=== PATIENT | female | born 1955 | race Caucasian/White ===

== ENCOUNTER 2020-12-13 07:30 | Outpatient (REF) | payer BC, SELFPAY ==
[2020-12-13 08:14] LABS: MANUAL DIFF FLAG NO
[2020-12-13 08:16] LABS: Basophils Absolute Auto 0.1 X10*3/uL (0.0-0.2); Basophils Percent Auto 0.9 % (0-2); Eosinophils Absolute Auto 0.2 X10*3/uL (0.0-0.4); Eosinophils Percent Auto 3.6 % (0-4); Hematocrit 43.2 % (37-47); Hemoglobin 14.1 g/dl (12.0-16.0); Imm Gran Abs Auto 0.01 X10*3/uL (0.00-0.03); Imm Gran Pct Auto 0.2 % (0.0-0.4); Lymphocytes Absolute Auto 1.4 X10*3/uL (1.2-4.9); Lymphocytes Percent Auto 26.4 % (20-40); Mean Corpuscular HGB Conc 32.6 g/dl (31.0-35.0); Mean Corpuscular Volume 88.7 fL (80-98); Mean Platelet Volume 10.7 fL (9.4-12.3); Monocytes Absolute Auto 0.5 X10*3/uL (0.1-1.2); Neutrophils Absolute Auto 3.2 X10*3/uL (2.0-8.3); Neutrophils Percent Auto 59.9 % (45-73); Platelet Count 213 X10*3/uL (160-400); Red Blood Count 4.87 X10*6/uL (4.20-5.50); Red Cell Distribution Width 13.1 % (11.0-16.0); White Blood Count 5.4 X10*3/uL (4.8-10.8)
[2020-12-13 08:42] LABS: Alanine Aminotransferase 17 U/L (0-31); Albumin Level 4.1 g/dL (3.5-5.0); Alkaline Phosphatase 116 U/L (39-117); Anion Gap 16 (12-20); Aspartate Amino Transferase 32 U/L (5-31); Bilirubin Total 0.4 mg/dL (0.0-1.0); Blood Urea Nitrogen 13 mg/dL (9-16); Calcium 9.3 mg/dL (8.4-10.2); Carbon Dioxide 22 mmol/L (22-29); Chloride 107 mmol/L (96-108); Cholesterol 194 mg/dL; Estimated Glomerular Filt Rate > 60; Glucose Random 90 mg/dL (60-115); HDL Cholesterol 81 mg/dL; LDL Cholesterol Calculated 100 mg/dl; Potassium 5.4 mmol/L (3.3-5.1); Sodium 140 mmol/L (135-145); Total Protein 7.5 g/dL (6.5-8.0); Triglycerides 67 mg/dL
== END 2020-12-13 07:31 | disposition home or self-care (01) ==
LOC: HO.LAB 07:30
PROVIDERS: PCP Internal Medicine; Visit Provider Internal Medicine
DX: Z00.00 Encounter for general adult medical examination without abnormal findings (principal)
CPT/HCPCS: 36415; 80053; 80061; 85025

== ENCOUNTER 2021-01-21 13:37 | Outpatient (REF) | payer MEDICARE, SELFPAY ==
--- NOTE | ~2021-01-21 | MM_ITS ---
EXAMINATION: MM SCREENING DIGITAL BREAST TOMOSYNTHESIS, BILATERAL CLINICAL INFORMATION: Screening. Asymptomatic. The lifetime risk of breast cancer based on the Tyrer-Cuzick Model is 5.9%. COMPARISON: Mammography: February 20, 2019 and studies dating back to April 22, 2011 TECHNIQUE: Digital breast tomosynthesis is performed in both the craniocaudal and mediolateral oblique views along with computer-aided detection (CAD). Synthesized 2D images are generated from the tomosynthesis. FINDINGS: There are scattered areas of fibroglandular density (ACR BI-RADS breast composition Category b). There are no new significant masses, abnormal calcifications, or other abnormalities. MM/MM tomosynthesis screening BI IMPRESSION: There are no significant changes from prior study. ASSESSMENT: BI-RADS 1: Negative RECOMMENDATION: Routine annual mammography screening. This patient's information was entered into a reminder system with a target due date for their next mammogram.
--- NOTE | ~2021-01-21 | MM_ITS ---
EXAMINATION: BONE DENSITOMETRY CLINICAL INDICATION: Menopause. COMPARISON: None (current study represents initial baseline exam). TECHNIQUE: Using a [employer] DXA System (software version: 13.1) manufactured by [employer], dual-energy x-ray absorptiometry was performed of the lumbar spine and left hip. The images are of good technical quality. Summary results are attached. FINDINGS: AP SPINE L1-L4: BMD 0.993 g/cm2, Z-score -0.1, T-score -1.6, osteopenia. LEFT FEMUR, NECK: BMD 0.758 g/cm2, Z-score -0.6, T-score -2.0, osteopenia. LEFT FEMUR, TOTAL: BMD 0.814 g/cm2, Z-score -0.4, T-score -1.5, osteopenia. IDENTIFIED RISK FACTORS: Menopause. HISTORY OF FRACTURE: None listed. MEDICATIONS: Calcium. MM/XR DEXA axial skeleton IMPRESSION: 1. DIAGNOSIS: Osteopenia based on the lowest T-score value of -2.0 in the femoral neck applying World Health Organization criteria. 2. 10-YEAR FRACTURE RISK PREDICTION, FRAX: Major osteoporotic fracture (clinical spine, forearm, hip or shoulder) 10.7%. Hip fracture 1.6%. 3. Treatment Recommendations: NOF guidelines recommend consideration for treatment in postmenopausal women and men age 50 and older presenting with the following: -A hip or vertebral (clinical or morphometric) fracture. -T-score less than or equal to -2.5 at the femoral neck or spine after appropriate evaluation to exclude secondary causes. -Low bone mass at the hip or spine and a 10-year fracture probability by FRAX of greater than or equal to 3% for hip fracture or greater than or equal to 20% for major osteoporotic fracture based on the [place] adapted WHO algorithm. 4. Other Recommendations: All treatment decisions require clinical judgment and consideration of individual patient factors, including patient preferences, comorbidities, previous drug use, risk factors not captured in the FRAX model (e.g. frailty, falls, vitamin D deficiency, increased bone turnover, interval significant decline in bone density) and possible under or overestimation of fracture risk by FRAX. Additional medical evaluation for secondary cause of low bone mineral density may be appropriate. FUTURE SCAN RECOMMENDATION: People with diagnosed cases of osteoporosis or at high risk for fracture should have regular bone mineral density tests. For patients eligible for Medicare, routine testing is allowed once every 2 years. The testing frequency can be increased to one year for patients who have rapidly progressing disease, those who are receiving or discontinuing medical therapy to restore bone mass, or have additional risk factors.
== END 2021-01-21 13:38 | disposition home or self-care (01) ==
LOC: HO.MAMMO 13:37
PROVIDERS: Visit Provider Internal Medicine
DX: Z12.31 Encounter for screening mammogram for malignant neoplasm of breast (principal); Z13.820 Encounter for screening for osteoporosis; M85.80 Other specified disorders of bone density and structure, unspecified site; Z78.0 Asymptomatic menopausal state; Z79.899 Other long term (current) drug therapy
CPT/HCPCS: 77063; 77067; 77080

== ENCOUNTER 2022-05-25 15:26 | Outpatient (REF) | payer MEDICARE, SELFPAY ==
--- NOTE | ~2022-05-25 | XR_ITS ---
EXAMINATION: XR CHEST CLINICAL INFORMATION: Shortness of breath. Rule out lesion. COMPARISON: None TECHNIQUE: 2 views of the chest were obtained. FINDINGS: No significant abnormality is noted involving the heart, lungs, mediastinum, bony thorax or soft tissues. There are degenerative changes of the spine. XR/XR chest 2V IMPRESSION: Unremarkable examination.
[2022-05-25 15:44] LABS: MANUAL DIFF FLAG NO
[2022-05-25 16:01] LABS: Basophils Percent Auto 0.4 % (0-2); Eosinophils Absolute Auto 0.2 X10*3/uL (0.0-0.4); Eosinophils Percent Auto 3.3 % (0-4); Hematocrit 41.4 % (37.0-47.0); Hemoglobin 13.5 g/dl (12.0-16.0); Imm Gran Abs Auto 0.02 X10*3/uL (0.00-0.03); Imm Gran Pct Auto 0.3 % (0.0-0.4); Lymphocytes Absolute Auto 2.2 X10*3/uL (1.2-4.9); Lymphocytes Percent Auto 31.7 % (20-40); Mean Corpuscular HGB Conc 32.6 g/dl (31.0-35.0); Mean Corpuscular Hemoglobin 28.9 pg (27.0-33.0); Mean Corpuscular Volume 88.7 fL (80.0-98.0); Mean Platelet Volume 9.8 fL (9.4-12.3); Monocytes Absolute Auto 0.6 X10*3/uL (0.1-1.2); Monocytes Percent Auto 8.9 % (2-11); Neutrophils Absolute Auto 3.8 x10*3/uL (2.0-8.3); Neutrophils Percent Auto 55.4 % (45-73); Platelet Count 303 X10*3/uL (160-400); Red Blood Count 4.67 X10*6/uL (4.20-5.50); Red Cell Distribution Width 12.9 % (11.0-16.0); White Blood Count 6.9 X10*3/uL (4.8-10.8)
[2022-05-25 16:13] LABS: D Dimer High Sensitivity < 150 NG/ML
[2022-05-25 16:50] LABS: Alanine Aminotransferase 19 U/L (0-31); Albumin Level 4.5 g/dL (3.5-5.0); Alkaline Phosphatase 123 U/L (39-117); Anion Gap 16 (12-20); Aspartate Amino Transferase 22 U/L (5-31); Bilirubin Total 0.3 mg/dL (0.0-1.0); Blood Urea Nitrogen 16 mg/dL (9-16); Calcium 9.7 mg/dL (8.4-10.2); Carbon Dioxide 24 mmol/L (22-29); Chloride 105 mmol/L (96-108); Estimated Glomerular Filt Rate > 60; Glucose Random 85 mg/dL (60-115); Potassium 4.4 mmol/L (3.3-5.1); Sodium 141 mmol/L (135-145); Total Protein 7.5 g/dL (6.5-8.0)
== END 2022-05-25 15:27 | disposition home or self-care (01) ==
LOC: HO.LAB 15:26
PROVIDERS: PCP Internal Medicine; Visit Provider Internal Medicine
DX: M54.9 Dorsalgia, unspecified (principal); R06.02 Shortness of breath
CPT/HCPCS: 36415; 71046; 80053; 82550; 85025; 85379; 86140

== ENCOUNTER 2022-12-11 13:41 | Outpatient (REF) | payer MEDICARE, SELFPAY ==
--- NOTE | ~2022-12-11 | XR_ITS ---
EXAMINATION: XR LUMBOSACRAL SPINE CLINICAL INFORMATION: Mid back pain. COMPARISON: None available. TECHNIQUE: Three views of the lumbosacral spine. FINDINGS: Examination demonstrates severe disc space narrowing at L4-L5 and moderate disc space narrowing at L5-S1. Mild facet degenerative changes are present at L4-S1. Asymmetric sacralization of L5. No spondylolysis or spondylolisthesis is appreciated. Vertebral body heights appear maintained. There may be approximately 1 mm posterior subluxation of L4 on L5. Mild lumbar levocurvature. No lytic or sclerotic bony lesion is identified. The paraspinal soft tissues appear unremarkable. Aortoiliac calcification. XR/XR lumbar spine 2-3V IMPRESSION: Degenerative change.
--- NOTE | ~2022-12-11 | XR_ITS ---
EXAMINATION: XR THORACIC SPINE CLINICAL INFORMATION: Mid back pain. COMPARISON: None available. TECHNIQUE: Frontal, lateral, and swimmer's views. FINDINGS: Examination demonstrates mild disc degenerative change involving the mid thoracic spine. Vertebral body heights and alignment appear maintained. No lytic or sclerotic bony lesion is seen. The paraspinal soft tissues appear unremarkable. XR/XR thoracic spine 2V IMPRESSION: Mild degenerative changes.
== END 2022-12-11 13:42 | disposition home or self-care (01) ==
LOC: HO.XRAY 13:41
PROVIDERS: PCP Internal Medicine; Visit Provider Internal Medicine
DX: M54.9 Dorsalgia, unspecified (principal)
CPT/HCPCS: 72070; 72100

== ENCOUNTER 2025-02-02 08:56 | Outpatient (AMB) | payer MEDICARE, SELFPAY ==
[2025-02-02 08:58] VITALS: BP 122/76; PULSE 90; TEMP 36.5; O2SAT 98; BMI 29.7
--- NOTE | 2025-02-02 08:58 | MHC.PC.OV ---
Vital Signs 02/02/25 08:58 Height 5 ft 1 in Weight 157 lb BMI 29.7 BP 122/76 Blood Pressure Location Rt brachial Position Sitting Pulse 90 Pulse Source Pulse Oximeter Temp 97.7 F Temp Source Axillary Pulse Oximetry (%) 98 Oxygen Delivery Method Room Air Intake Visit Reasons: Routine - see comments Sandwich Artist Required: No Accompanied by: Self / Same As Patient Allergies No Known Allergies Allergy (Verified 02/02/25 09:01) Tobacco use date assessed: 02/02/25 Fall risk assessment: No Falls in past year Last assessed Fall Risk: 02/02/25 Dental Screening Dental Screen Date: 02/02/25 Did you have a dental visit in the last 12 months?: Yes Did you have a dental problem in the last 6 months where you did not have access to dental care?: No HPI HPI Comments History of Present Illness Details The patient is a 69 year old female with a past medical history of hypertension presenting for follow up CV: htn on lisinopril 122/76. Denies chest pain, shortness of breath. She has had two episodes of elevated heart rate in the past six months.. Notes her heart rate increased to 150s, 160s. Has apple watch. Couldnt read rhythm. She is frustrated by weight gain. Has been really careful with diet and exercise Reports episodic globus, dysphagia. Intermittent cough, throat clearing. 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 Colonoscopy 04/2017 ROS CONSTITUTIONAL: Denies weight loss, fever and chills. HEENT: Denies changes in vision and hearing. RESPIRATORY: Denies SOB and cough. CV: Denies palpitations and CP GI: Denies abdominal pain, nausea, vomiting and diarrhea. : Denies dysuria and urinary frequency. MSK: Denies new myalgia and joint pain. SKIN: Denies rash and pruritus. NEUROLOGICAL: Denies headache PSYCHIATRIC: Denies recent changes in mood. PHYSICAL EXAM: GENERAL: Alert and oriented x 3. NAD EYES: EOMI. Anicteric. HENT: Moist mucous membranes. No scleral icterus. No cervical lymphadenopathy. LUNGS: Clear to auscultation bilaterally. CARDIOVASCULAR: Regular rate and rhythm. No murmur. No JVD. ABDOMEN: Soft, non-tender +bs EXTREMITIES: No edema. Non-tender. SKIN: No rashes or lesions. Warm. NEUROLOGIC: No focal neurological deficits. CN II-XII grossly intact PSYCHIATRIC: Cooperative. Appropriate mood and affect [facility] Surgical History History of colonoscopy (~05/17/17) Family History (Updated 02/02/25 @ 09:02 by Desirae Plunkett MA) Mother No problems noted. Father No problems noted. Social History Housing: House Patient Tobacco Use Status: Former Tobacco user e-Cigarette/Vaping Use: Former Use service: No Current occupational status: employed and retired Cognitive needs: No Hearing needs: No Vision needs: Yes (rx glasses) Questionnaire PHQ-9 Over the last 2 weeks, how often have you been bothered by any of the following problems? 1. Little interest or pleasure in doing things: not at all 2. Feeling down, depressed, or hopeless: not at all 3. Trouble falling or staying asleep, or sleeping too much: not at all 4. Feeling tired or having little energy: not at all 5. Poor appetite or overeating: not at all 6. Feeling bad about yourself - or that you are a failure or have let yourself or your family down: not at all 7. Trouble concentrating on things, such as reading the newspaper or watching television: not at all 8. Moving or speaking so slowly that other people could have noticed. Or the opposite - being so fidgety or restless that you have been moving around a lot more than usual: not at all 9. Thoughts that you would be better off or of hurting yourself in some way: not at all Total score: 0 Depression Screening Interpretation: Negative Depression Screening Done: Yes 06243 - PHQ-9 Billing: Yes Source: Developed by Drs. Rickie Oliver, Linda Sequeira, Brenton Valencia and colleagues, with an educational redd from [employer]. Thrive Questionnaire Date Thrive assessed: 02/02/25 I am a: Patient Within the past 12 months, did the food you bought not last and you didn't have the money to get more?: Never true Within the past 12 months, did you worry whether your food would run out before you got money to buy more?: Never true Do you have trouble paying for medicines?: No Do you have trouble getting transportation to medical appointments?: No Do you have trouble paying your heating and electricity bill?: No Do you have trouble taking care of your child, family member or friend?: No Do you have trouble with day-to-day activities such as bathing, preparing meals, shopping, managing finances, etc.?: No Are you currently unemployed and looking for a job?: No Are you interested in more education?: No THRIVE Score: 0 AUDIT C Alcohol Use Questionnaire (AUDIT-C) 1. How often do you have a drink containing alcohol?: Monthly or less 2. How many drinks containing alcohol do you have on a typical day when you are drinking?: 1 or 2 3. How often do you have six or more drinks on one occasion?: Less than monthly Total Score: 2 AYLEEN-7 AMB Questionnaire ALYEEN-7 Date AYLEEN - 7 assessed: 02/02/25 Feeling nervous, anxious, or on edge: 0 = Not at all Not being able to stop or control worryin = Not at all Worrying too much about different things: 0 = Not at all Trouble relaxin = Not at all Being so restless that it is hard to sit still: 0 = Not at all Becoming easily annoyed or irritable: 0 = Not at all Feeling afraid as if something awful might happen: 0 = Not at all Total AYLEEN-7 score (0-4 normal; 5-9 mild; 10-14 moderate; 15-21 severe): 0 Source: Developed by Drs. Rickie Oliver, Linda Sequeira, Brenton Valencia and colleagues, with an educational redd from [employer]. Physical exam (Primary Care) Vital Signs: Last Vital Signs Temp 97.7 F 02/02/25 08:58 Pulse 90 02/02/25 08:58 BP 122/76 02/02/25 08:58 Pulse Ox 98 02/02/25 08:58 Oxygen Delivery Method Room Air 02/02/25 08:58 BMI result Body Mass Index 29.7 Tobacco/Smoking Status: Tobacco use Status Tobacco use date assessed 02/02/25 02/02/25 09:04 Patient Tobacco Use Status Former Tobacco user 02/02/25 09:04 e-Cigarette/Vaping Use Former Use 02/02/25 09:04 PHQ-9: PHQ-9 Score PHQ-9: Total score 0 02/02/25 13:06 Depression Screening Interpretation: Negative Thrive Assessment: Date of Thrive Assessment Date Thrive assessed 02/02/25 02/02/25 09:04 Coding Level of Care Code New Pt Level 4 (44740) Complex EM visit Add On G2211 Diagnoses Primary hypertension I10 Hypertension type: primary hypertension Heart murmur R01.1 Dysphagia, unspecified type R13.10 Dysphagia type: unspecified Globus sensation R09.A2 Additional Codes PHQ-9 - 64193 - PHQ-9 Billing: Yes ([id number]) Assessment & Plan Assessment & Plan (1) Hypertension: Code(s): I10 - Essential (primary) hypertension Category: Medical Qualifiers: Hypertension type: primary hypertension Qualified Code(s): I10 - Essential (primary) hypertension (2) Heart murmur: Code(s): R01.1 - Cardiac murmur, unspecified Category: Medical (3) Dysphagia: Code(s): R13.10 - Dysphagia, unspecified Category: Medical Qualifiers: Dysphagia type: unspecified Qualified Code(s): R13.10 - Dysphagia, unspecified (4) Globus sensation: Code(s): R09.A2 - Foreign body sensation, throat Category: Medical Plan 69 year old to establish care Past medical, surgical social reviewed HTN is well controled Dysphagia-swallow test, GI. US thyroid ordred Tachycardia, palpitations -echo, holter ordered Orders: Orders Comprehensive Met. Panel 02/02/25 I10 - Essential (primary) hypertension, R35.89 - Other polyuria, Z13.0 - Encounter for screening for diseases of the blood and blood-forming organs and certain disorders involving the immune mechanism, Z13.220 - Encounter for screening for lipoid disorders, Z13.228 - Encounter for screening for other metabolic disorders LDL Cholesterol Direct 02/02/25 I10 - Essential (primary) hypertension, R35.89 - Other polyuria, Z13.0 - Encounter for screening for diseases of the blood and blood-forming organs and certain disorders involving the immune mechanism, Z13.220 - Encounter for screening for lipoid disorders, Z13.228 - Encounter for screening for other metabolic disorders Hemoglobin A1c 02/02/25 I10 - Essential (primary) hypertension, R35.89 - Other polyuria, Z13.0 - Encounter for screening for diseases of the blood and blood-forming organs and certain disorders involving the immune mechanism, Z13.220 - Encounter for screening for lipoid disorders, Z13.228 - Encounter for screening for other metabolic disorders CA echo transthoracic complete 02/02/25 R00.0 - Tachycardia, unspecified, R01.1 - Cardiac murmur, unspecified ECG holter monitor 48 hour 02/02/25 R00.0 - Tachycardia, unspecified AMB EKG-In Office 02/02/25 R00.2 - Palpitations FL barium swallow 02/02/25 R09.A2 - Foreign body sensation, throat, R13.10 - Dysphagia, unspecified Complete Blood Count Auto Diff 02/02/25 I10 - Essential (primary) hypertension, R35.89 - Other polyuria, Z13.0 - Encounter for screening for diseases of the blood and blood-forming organs and certain disorders involving the immune mechanism, Z13.220 - Encounter for screening for lipoid disorders, Z13.228 - Encounter for screening for other metabolic disorders TSH reflex Free T4 02/02/25 I10 - Essential (primary) hypertension, R35.89 - Other polyuria, Z13.0 - Encounter for screening for diseases of the blood and blood-forming organs and certain disorders involving the immune mechanism, Z13.220 - Encounter for screening for lipoid disorders, Z13.228 - Encounter for screening for other metabolic disorders MM tomosynthesis screening BI 02/02/25 Z12.31 - Encounter for screening mammogram for malignant neoplasm of breast US thyroid 02/02/25 E04.9 - Nontoxic goiter, unspecified, R09.A2 - Foreign body sensation, throat, R13.10 - Dysphagia, unspecified Referrals Gastroenterology Referral R09.A2 - Foreign body sensation, throat, R13.10 - Dysphagia, unspecified Medications: New Zepbound (tirzepatide (weight loss)) for 4 weeks 2.5 mg (0.5 mL) subcut QWEEK 2 mL 1RF NS E66.3 - Overweight Refilled lisinopril 10 mg PO DAILY 90 tabs 3RF
--- OUTSIDE RECORDS SUMMARY | 2025-02-02 09:00 | XMS_ITS | Patient Health Record ---
Author Organization [facility] Address [address] [place] [address] Care Team Providers Care Commodities Broker Name Role Phone Ernesto (RETIRED) Miguel RAMSEY Primary Care Provide r Unavailable Rickie Ashraf Unavailable [phone] Reason For Referral No Information Medications Medication SIG (Take, Route, Fr equency, Duration) Notes Start Date End Date Status Lisinopril 5 MG 1 tablet Orally Once a day Active Social History Tobacco Use: Social History Observation Description Date Details (start date - stop date) Former Smoker NA - NA Tobacco Use/Smoking Question Answer Notes Patient is a former smoker When did you stop smoking? 35 years ago How long has it been since you last smoked? > 10 years Section Notes: Nonsmoker; no sig alcohol Problems Problem Type SNOMED Code ICD Code Onset Dates Problem Status W/U Status Risk Notes Problem [id number] Encounter for screening for malignant neoplasm of colon (Z12.11) Active confirmed Problem 398351970 Preprocedural examination (Z01.818) Active confirmed Plan Of Treatment Pending Test Test Name Order Date GI BIOPSY 05/17/2017 Future Test Test Name Order Date COLONOSCOPY 02/02/2017 Insurance Providers Payer Name Payer Address Payer Phone Subscriber Number Group Number Insured Name Patient Relationship to Insured Coverage Start Date Coverage End Date [facility] [employer] CLAIMS [address] [place] [address] [id number] JESSICA HADLEY Self - patient is the insured Medical (General) History Medical History History ICD Code Denies SD,DM,CVA,Lung disease,renal dise ase Hypertension 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 screening colonoscopy at a [facility] 51 in [place] Surgical History Surgery Date(Month/Year) section x 2 Uterine ablation
--- OUTSIDE RECORDS SUMMARY | 2025-02-02 09:00 | XMS_ITS | Patient Health Record ---
Author Organization [facility] Donya maday Jono Address [address] [place] [address] Care Team Providers Care Sales Trader Name Role Phone Miguel Orozco MD Primary Care Provider Rupert Lester Unavailable [phone] Allergies No Known Allergies Reason For Referral No Information Medications Medication SIG (Take, Route, Frequency, Duration) Notes Start Date End Date Status Lisinopril 10 MG 1 tablet Orally Once a day; Duration: 30 day(s) Active Night Splint AFO - L1930 as directed 10/27/2021 Active Immunizations Vaccine Route Administration Date Status Comme nts COVID-19 Pfizer BioNTech Vaccine Unknown 10/18/2021 Administered 1st 08/03/20 2nd 08/24/20 3rd 04/11/21 Social History Tobacco Use: Social History Observation Description Date Details (start date - stop date) Former Smoker NA - NA Tobacco Use/Smoking Question Answer Notes Are you a: former smoker Additional Findings: Tobacco Non-User Current no n-smoker Alcohol Screen Question Answer Notes Did you have a drink containing alcohol in the p ast year? Yes Points 0 Interpretation Negative Tobacco use other than smoking: Question Answer Notes Are you an other tobacco user? No Plan Of Treatment Pending Test Test Name Order Date X ray : Foot, left 3V 10/27/2021 X ray : Foot, right 3V 10/27/2021 Insurance Providers Payer Name Payer Address Payer Phone Subscriber Number Group Number Insured Name Patient Relationship to Insured Coverage Start Date Coverage End Date Medicare National [employer] [address] [place] [address] [id number] Marcella Simmons Self - patient is the insured [facility] [address] [place] [address] [phone] [id number] Marcella Simmons Self - patient is the insured Medical (General) History Medical History History ICD Code High blood pressure Surgical History Surgery Date(Month/Year) 11/01/1984 C- Section 04/28/1989
== END 2025-02-02 10:35 | disposition home or self-care (01) ==
LOC: HO.HMCHD 08:57
PROVIDERS: PCP Internal Medicine; Visit Provider Internal Medicine
DX: I10 Essential (primary) hypertension (principal); R01.1 Cardiac murmur, unspecified; R13.10 Dysphagia, unspecified; R09.A2 Foreign body sensation, throat

== ENCOUNTER → 2025-02-02 08:56 | Outpatient (BNVA) | payer MEDICARE, SELFPAY | PROVIDERS: PCP Internal Medicine; Visit Provider Internal Medicine | DX: I10 Essential (primary) hypertension (principal); R01.1 Cardiac murmur, unspecified; R13.10 Dysphagia, unspecified; R09.A2 Foreign body sensation, throat; Z13.31 Encounter for screening for depression; Z13.30 Encounter for screening examination for mental health and behavioral disorders, unspecified | CPT/HCPCS: 96127; 99202 ==

== ENCOUNTER 2025-02-06 08:33 | Outpatient (REF) | payer MEDICARE, SELFPAY ==
--- OUTSIDE RECORDS SUMMARY | 2025-02-06 08:51 | XMS_ITS | Patient Health Record ---
Author Organization [facility] Donya maday Jono Address [address] [place] [address] Care Team Providers Care Engine Tester Name Role Phone Miguel Orozco MD Primary Care Provider Rupert Lester Unavailable [phone] Allergies No Known Allergies Reason For Referral [...] Medicare National Govt Sv[employer] Inc [address] [place] [address] [id number] Marcella Simmons Self - patient is the insured [facility] [address] [place] [address] [phone] [id number] Marcella Simmons Self - patient is the insured Medical (General) History Medical History History ICD Code High blood pressure Surgical History Surgery Date(Month/Year) 11/01/1984 C- Section 04/28/1989
--- OUTSIDE RECORDS SUMMARY | 2025-02-06 08:51 | XMS_ITS | Patient Health Record ---
Author Organization [facility] Address [address] [place] [address] Care Team Providers Care Template Cutter Name Role Phone Ernesto (RETIRED) Miguel RAMSEY Primary Care Provide r Unavailable Rickie Ashraf Unavailable [phone] Reason For Referral No Information Medications Medication [...] Problem Status W/U Status Risk Notes Problem [id number] Encounter for screening for malignant neoplasm of colon (Z12.11) Active confirmed Problem 598328990 Preprocedural examination (Z01.818) Active confirmed Plan Of Treatment Future Test Test Name Order Date COLONOSCOPY 02/02/2017 Insurance Providers Payer Name Payer Address Payer Phone Subscriber Number Group Number Insured Name Patient Relationship to Insured Coverage Start Date Coverage End Date 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 screening colonoscopy at a [facility] in [place] Surgical History Surgery Date(Month/Year) section x 2 Uterine ablation
[2025-02-06 09:48] LABS: MANUAL DIFF FLAG NO
[2025-02-06 09:54] LABS: Hematocrit 40.8 % (37.0-47.0); Hemoglobin 13.1 g/dl (12.0-16.0); Imm Gran Abs Auto 0.01 X10*3/uL (0.00-0.03); Imm Gran Pct Auto 0.2 % (0.0-0.4); Lymphocytes Absolute Auto 1.5 X10*3/uL (1.2-4.9); Mean Corpuscular HGB Conc 32.1 g/dl (31.0-35.0); Mean Corpuscular Hemoglobin 28.4 pg (27.0-33.0); Mean Corpuscular Volume 88.5 fL (80.0-98.0); NRBC Abs Auto 0.000 X10*3/uL (0.0-0.012); NRBC Pct Auto 0.0 /100WBC (0.0-0.2); Platelet Count 241 X10*3/uL (160-400); Red Blood Count 4.61 X10*6/uL (4.20-5.50); White Blood Count 5.3 X10*3/uL (4.8-10.8)
[2025-02-06 10:01] LABS: Hemoglobin A1C 117.2347 umol/L; Total Hemoglobin (HGBA1C) 3430.7021 umol/L
[2025-02-06 10:20] LABS: Alanine Aminotransferase 15 U/L (0-31); Albumin Level 3.9 g/dL (3.5-5.0); Alkaline Phosphatase 112 U/L (39-117); Anion Gap 10 (12-20); Aspartate Amino Transferase 20 U/L (5-31); Blood Urea Nitrogen 14 mg/dL (9-16); Calcium 8.8 mg/dL (8.4-10.2); Carbon Dioxide 26 mmol/L (22-29); Chloride 111 mmol/L (96-108); Estimated Glomerular Filt Rate > 60; Potassium 3.9 mmol/L (3.3-5.1); Sodium 143 mmol/L (135-145); Total Protein 6.5 g/dL (6.5-8.0)
== END 2025-02-06 08:34 | disposition home or self-care (01) ==
LOC: HO.10HDL 08:33
PROVIDERS: Visit Provider Internal Medicine
DX: I10 Essential (primary) hypertension (principal); R35.89 Other polyuria; Z13.1 Encounter for screening for diabetes mellitus
CPT/HCPCS: 36415; 80053; 83036; 83721; 84443; 85025

== ENCOUNTER → 2025-03-05 11:03 | Outpatient (REF) | payer MEDICARE, SELFPAY ==
--- NOTE | 2025-03-05 11:06 | HM_ITS ---
* Total monitoring time 2 days. * Underlying rhythm is sinus with an average rate of 83/Min. * Rare supraventricular ectopy. * Rare ventricular ectopy. * No significant pauses or high-grade AV blocks. * No patient markers or diary events. MTDD
--- NOTE | 2025-03-05 11:06 | CA_ITS ---
Transthoracic Echocardiogram Patient (Last, First, Middle): Marcella Simmons E Gender: Female Date of : 1955 Age: 69 Procedure Date: 03/05/2025 Procedure Type: Transthoracic Echocardiogram Location: OP Height: 154.94 cm Weight: 71.22 kg BSA: 1.70 m2 Heart Rate: bpm BP: 110 / 72 mmHg Manager Data Warehouse: TO Referring MD: Francisca Ya MD Blood Bank Laboratory Professional: Dalton Reynaga MD Symptoms: R00.0 - Tachycardia, unspecified Study Quality: Adequate w contrast ECG Rhythm: Sinus Conclusions: - Essentially normal study Findings Procedure Information Contrast agent, definity, is being given per protocol without apparent complications. Left Ventricle Normal left ventricular size, thickness, and systolic function. The visually estimated ejection fraction is between 60-65%. Spectral Doppler is indicative of a normal filling pattern. Right Ventricle Normal right ventricular cavity size and systolic function. Atria Both atria are normal in size. There is no evidence of interatrial shunt. Aortic Valve Normal aortic valve structure and function. There is no aortic valve stenosis. There is no aortic valve regurgitation. Mitral Valve Normal mitral valve structure and function. There is trace mitral valve regurgitation. There is no mitral valve stenosis. Pulmonic Valve The pulmonic valve is likely normal. There is trace pulmonic valve regurgitation. Tricuspid Valve Normal tricuspid valve structure. Tricuspid regurgitation envelope is inadequate for calculation of right ventricular systolic pressure. Normal right atrial pressure. Great Vessels All visible segments of the aorta are normal in size. The pulmonary artery was not well visualized. Venous The inferior vena cava is normal in size and collapses greater than 50% with inspiration. Pericardium/Pleural There is no evidence of pericardial effusion. Prior Study Comparison no previous study in the last 5 years for comparison Measurements 2D Linear Measurements IVSd: 0.82 0.6-0.9/0.6-1.0 cm LVIDd: 3.80 3.9-5.3/4.2-5.9 cm LVIDd Index: 2.24 2.4-3.2/2.2-3.1 cm/m2 LVIDs: 2.48 2.0-3.6 cm LVPWd: 0.70 0.7-1.1 cm LA Diam: 3.20 2.7-3.8/3.0-4.0 cm LAIDs Index: 1.88 1.5-2.3 cm/m2 LV Mass: 99.00 67-162/88-224 g LV Mass Index: 58.23 43-95/49-115 g/m2 LVOT Diam: 2.00 3.0+(-)1.3 cm 2D Systolic Function EF 4C: 64.40 >55% EF 2C: 55.60 >55% EF BiP: 60.20 >55% Mitral Valve MV Pk E: 0.81 MV PK A: 0.70 MV Decel Time: 206.00 E/A: 1.20 E'Lateral: 7.40 E'Medial: 6.53 E/E' Med: 12.50 E/E' Lat: 11.00 PHT: 60.00 MVA PHT: 3.67 Decel Gregg: 3.96 Aortic Valve AoV Pk Faustino: 1.24 AoV Mn Faustino: 0.91 AoV VTI: 0.29 AoV Pk Grad: 6.00 Aov Mn Grad: 4.00 DIOGENES Cont.VTI: 2.05 LVOT LVOT Pk Faustino: 1.12 LVOT Mn Faustino: 0.70 LVOT VTI: 0.19 LVOT Pk Grad: 5.00 LVOT Mn Grad: 2.00 LVOT Diam: 2.00 LVOT Area: 3.14 Diastolic Function MV Pk E: 0.81 MV Pk A: 0.70 E/A: 1.20 E'Medial: 6.53 E/E' Med: 12.50 E' Laterial: 7.40 E/E' Lat: 11.00 Right Ventricle TAPSE (mm): 20.00 TVS' Faustino: 10.70 Tricuspid Valve TR Pk Faustino: 2.19 TR Pk Grad: 19.00 Great Vessels Aorta Sinus of Valsalva: 2.73 2.0-3.[address] Ridge: 2.19 1.7-3.4 cm Ao Asc: 3.20 2.1-3.4 cm Pulmonary Veins Pulm Vein S/D 1.60 Updated in Other Vendor System with Status of Final Dalton Reynaga MD electronically signed on 03/05/2025 4:49:01 PM with status of Final
--- OUTSIDE RECORDS SUMMARY | 2025-03-05 12:16 | XMS_ITS | Patient Health Record ---
Author Organization [facility] Address [address] [place] [address] Care Team Providers Care Sound Person Name Role Phone Francisca Ya M.D. Primary Care Provider Rickie Pena Unavailable [phone] Reason For Referral No Information Medications Medication [...] Problem Status W/U Status Risk Notes Problem [id number] Encounter for screening for malignant neoplasm of colon (Z12.11) Active confirmed Problem [id number] Preprocedural examination (Z01.818) Active confirmed Plan Of Treatment Future Test Test Name Order Date COLONOSCOPY 02/02/2017 Next Appt Details Provider Name:Rickie Ashraf , 06/06/2025 01:20:00 PM, [address] [place] [address], [address], [place], [address], Insurance Providers Payer Name Payer Address Payer Phone Subscriber Number Group Number Insured Name Patient Relationship to Insured Coverage Start Date Coverage End Date [place] [address] [place] [address] [phone] [id number] JESSICA HADLEY Self - patient is the insured [employer] ATT[employer] CLAIMS [address] [place] [address] [phone] [id number] 5 JESSICA HADLEY Self - patient is the insured Medical (General) History Medical History History ICD Code Denies [place],DM,CVA,Lung disease,renal dise ase Hypertension 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 screening colonoscopy at a [facility] in [place] Surgical History Surgery Date(Month/Year) section x 2 Uterine ablation
--- OUTSIDE RECORDS SUMMARY | 2025-03-05 12:16 | XMS_ITS | Patient Health Record ---
Author Organization [facility] Donya maday [place] Address [address] [place] [address] Care Team Providers Care Examination Grader Name Role Phone Miguel Orozco MD Primary Care Provider Rupert Lester Unavailable [phone] Allergies No Known Allergies Reason For Referral [...] Medicare National Govt Svcs Inc [address] [place] [address] [id number] Marcella Simmons Self - patient is the insured [facility] [address] [place] [address] [phone] [id number] 5 Marcella Simmons Self - patient is the insured Medical (General) History Medical History History ICD Code High blood pressure Surgical History Surgery Date(Month/Year) 11/01/1984 C- Section 04/28/1989
== END ==
LOC: HO.CARD 11:03
PROVIDERS: PCP Internal Medicine; Visit Provider Internal Medicine
DX: R00.2 Palpitations (principal); R00.0 Tachycardia, unspecified; R01.1 Cardiac murmur, unspecified
CPT/HCPCS: 93225; 93306; Q9957

== ENCOUNTER → 2025-03-05 11:06 | Outpatient (BNV) | payer MEDICARE, SELFPAY | PROVIDERS: PCP Internal Medicine; Visit Provider Internal Medicine Cardiovascular Disease | DX: R00.0 Tachycardia, unspecified (principal) | CPT/HCPCS: 93306 ==

== ENCOUNTER 2025-04-03 09:22 | Outpatient (REF) | payer MEDICARE, SELFPAY ==
--- NOTE | ~2025-04-03 | FL_ITS ---
EXAMINATION: XR FLUOROSCOPY BARIUM SWALLOW CLINICAL INFORMATION: Globe sensation, episodic dysphasia and foreign body sensation, upper esophageal region. COMPARISON: None TECHNIQUE: Fluoroscopic air contrast barium swallow examination was performed utilizing standard techniques with thin and thick barium and effervescent granules. Numerous spot images were obtained. Several fluoroscopic image hold cine sequences were also obtained. FINDINGS: BARIUM SWALLOW: Lateral cine images of the oropharynx and hypopharynx demonstrate normal swallow mechanism with normal epiglottic inversion and soft palate elevation. No laryngeal penetration, glottic or subglottic aspiration identified. No nasopharyngeal reflux present. Hypopharyngeal structures appear normal without evidence of mass or diverticulum. There was mild cricopharyngeal achalasia. Dual and single contrast images of the esophagus demonstrate normal caliber, contour, and mucosal pattern. 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 Otherwise no evidence of stricture, mass, or ulcerations identified. Esophageal peristalsis was mildly disordered. Tiny type I hiatus hernia present. No significant gastroesophageal reflux was seen during the course of the examination and on reflux views. Dual contrast and single contrast images of the stomach demonstrated normal contour and mucosal pattern without evidence of mass, ulceration, or other abnormality. Contrast freely passed into the gastric antrum and duodenal bulb without delay. FLUOROSCOPY TIME: 2 minutes, 12 seconds Number of Spot Images:7 Number of cines obtained: 5 DOSE AREA PRODUCT: 1705 uGy-m2 (microgray-meter squared) FL/FL barium swallow with air IMPRESSION: 1. Mild cricopharyngeal achalasia. 2. Mildly disordered esophageal peristalsis. 3. 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 This may be the source of the patient's symptoms. 4. Tiny type I hiatus hernia present. 5. No definite gastroesophageal reflux identified. 6. Normal-appearing stomach. Electronically signed by: Raul Mccarty MD 04/03/2025 10:19 AM EDT
--- OUTSIDE RECORDS SUMMARY | 2025-04-03 11:51 | XMS_ITS | Patient Health Record ---
Author Organization [facility] Address [address] [place] [address] Care Team Providers Care Rotary Operator Name Role Phone Francisca Ya M.D. Primary Care Provider Rickie Pena Unavailable [phone] Reason For Referral No Information Medications Medication [...] Problem Status W/U Status Risk Notes Problem [id number] Encounter for screening for malignant neoplasm of colon (Z12.11) Active confirmed Problem [id number] Preprocedural examination (Z01.818) Active confirmed Plan Of Treatment Future Test Test Name Order Date COLONOSCOPY 02/02/2017 Next Appt Details Provider Name:Rickie Ashraf , 06/06/2025 01:20:00 PM, [address] [place] [address], [address], [place], [address], Insurance Providers Payer Name Payer Address Payer Phone Subscriber Number Group Number Insured Name Patient Relationship to Insured Coverage Start Date Coverage End Date MEDICARE OF [place] [address] [place] [address] [id number] JESSICA HADLEY Self - patient is the insured [employer] ATT[employer] CLAIMS [address] [place] [address] [phone] [id number] 5 JESSICA HADLEY Self - patient is the insured Medical (General) History Medical History History ICD Code Denies [place],DM,CVA,Lung disease,renal dise ase Hypertension 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 screening colonoscopy at a [facility] in [place] Surgical History Surgery Date(Month/Year) section x 2 Uterine ablation
--- OUTSIDE RECORDS SUMMARY | 2025-04-03 11:51 | XMS_ITS | Patient Health Record ---
Author Organization [facility] Donya maday [place] Address [address] [facility] [place] [address] Care Team Providers Care Programming Instructor Name Role Phone Miguel Orozco MD Primary Care Provider Rupert Lester Unavailable [phone] Allergies No Known Allergies Reason For Referral [...] Medicare National Govt Svcs Inc [address] [place] [address] [id number] Marcella Simmons Self - patient is the insured [facility] [address] [place] [address] [phone] [id number] 5 Marcella Simmons Self - patient is the insured Medical (General) History Medical History History ICD Code High blood pressure Surgical History Surgery Date(Month/Year) 11/01/1984 C- Section 04/28/1989
== END 2025-04-03 09:23 | disposition home or self-care (01) ==
LOC: HO.XRAY 09:22
PROVIDERS: PCP Internal Medicine; Visit Provider Internal Medicine
DX: R13.10 Dysphagia, unspecified (principal); R09.A2 Foreign body sensation, throat
CPT/HCPCS: 74221

== ENCOUNTER → 2025-04-03 09:24 | Outpatient (BNV) | payer MEDICARE, SELFPAY | PROVIDERS: PCP Internal Medicine; Visit Provider Radiology Diagnostic Radiology | DX: R13.10 Dysphagia, unspecified (principal) | CPT/HCPCS: 74221 ==

== ENCOUNTER 2025-04-12 12:00 | Outpatient (REF) | payer MEDICARE, SELFPAY ==
--- OUTSIDE RECORDS SUMMARY | 2025-04-12 16:58 | XMS_ITS | Patient Health Record ---
Author Organization [facility] Donya maday [place] Address [address] [facility] [address] Care Team Providers Care Sap Sd Analyst Name Role Phone Miguel Orozco MD Primary Care Provider Rupert Lester Unavailable [phone] Allergies No Known Allergies Reason For Referral [...] Medicare National Govt Svcs Inc [address] [facility] [address] [id number] Marcella Simmons Self - patient is the insured [facility] [address] [place] [address] [phone] [id number] 5 Marcella Simmons Self - patient is the insured Medical (General) History Medical History History ICD Code High blood pressure Surgical History Surgery Date(Month/Year) 11/01/1984 C- Section 04/28/1989
--- OUTSIDE RECORDS SUMMARY | 2025-04-12 16:58 | XMS_ITS | Patient Health Record ---
Author Organization [facility] Address [address] [place] [address] Care Team Providers Care Java J2Ee Lead Name Role Phone Francisca Ya M.D. Primary Care Provider Rickie Pena Unavailable [phone] Reason For Referral No Information Medications Medication [...] Problem Status W/U Status Risk Notes Problem [id number] Encounter for screening for malignant neoplasm of colon (Z12.11) Active confirmed Problem [id number] Preprocedural examination (Z01.818) Active confirmed Plan Of Treatment Future Test Test Name Order Date COLONOSCOPY 02/02/2017 Next Appt Details Provider Name:Rickie Ashraf , 06/06/2025 01:20:00 PM, [address] [place] [address], [address], [place], [address], Insurance Providers Payer Name Payer Address Payer Phone Subscriber Number Group Number Insured Name Patient Relationship to Insured Coverage Start Date Coverage End Date MEDICARE OF [place] [address] [place] [address] [id number] JESSICA HADLEY Self - patient is the insured MED[employer] ATT[employer] CLAIMS [address] [place] [address] [id number] 5 JESSICA HADLEY Self - patient is the insured Medical (General) History Medical History History ICD Code Denies [place],DM,CVA,Lung disease,renal dise ase Hypertension 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 screening colonoscopy at a [facility] in [place] Surgical History Surgery Date(Month/Year) section x 2 Uterine ablation
== END 2025-04-12 12:01 | disposition home or self-care (01) ==
LOC: HO.MAMMO 12:00
PROVIDERS: PCP Internal Medicine; Visit Provider Internal Medicine
DX: Z12.31 Encounter for screening mammogram for malignant neoplasm of breast (principal)
CPT/HCPCS: 77063; 77067

== ENCOUNTER → 2025-04-12 12:15 | Outpatient (BNV) | payer MEDICARE, SELFPAY | PROVIDERS: PCP Internal Medicine; Visit Provider Internal Medicine | DX: Z12.31 Encounter for screening mammogram for malignant neoplasm of breast (principal) | CPT/HCPCS: 77063; 77067 ==

== ENCOUNTER 2025-04-19 11:13 | Outpatient (REF) | payer MEDICARE, SELFPAY ==
--- NOTE | ~2025-04-19 | US_ITS ---
EXAMINATION: US THYROID CLINICAL INFORMATION: Dysphagia. COMPARISON: None available. TECHNIQUE: Linear transducer grayscale and color Doppler examination with attention to the region of the thyroid. FINDINGS: SIZE: Measurements of the thyroid lobes and nodules are given in sagittal, anteroposterior and transverse dimensions respectively. Right Thyroid Lobe: 3.9 x 1.5 x 1.6 cm, volume 4.9 mL. Parenchyma: The gland echotexture is normal. Thyroid vascularity is normal. Left Thyroid Lobe: 3.6 x 1.2 x 1.7 cm, volume 3.9 mL. Parenchyma: The gland echotexture is normal. Thyroid vascularity is normal. Isthmus: 0.1 cm in maximum AP dimension. Estimated total number of nodules greater than or equal to 1 cm: 0. Supervisor Plastics nodules are described as follows: 1. Location: [Upper and Midportion right lobe. Size: 0.4 x 0.3 x 0.4 cm, volume 0.02 mL. Nodule characteristics: Composition: Cannot be determined (2). Echogenicity: Cannot be determined (1). Shape: Not taller than wide (0). Margins: Smooth (0). Echogenic Foci: None (0). ACR TI-RADS total points: 3 ACR TI-RADS category: 3 2. Location: Lower pole, right thyroid lobe. Size: [0.5 x 0.2 x 0.4 cm, volume 0.02 mL. Nodule characteristics: Composition: Solid (2). Echogenicity: Hypoechoic (2). Shape: Not taller than wide (0). Margins: Smooth (0). Echogenic Foci: Punctate echogenic foci (3). ACR TI-RADS total points: 7 ACR TI-RADS category: 5 3. Location: [Upper left lobe. Size: 0.6 x 0.3 x 0.6 cm, volume 0.07 mL. Nodule characteristics: Composition: Solid (2). Echogenicity: Hypoechoic (2). Shape: Not taller than wide (0). Margins: Smooth (0). Echogenic Foci: None (0). ACR TI-RADS total points: 4 ACR TI-RADS category: 4 4. Location: Lower pole right thyroid lobe. Size: 0.7 x 0.4 x 0.5 cm, volume 0.06 mL. Nodule characteristics: Composition: Mixed cystic and solid (1). Echogenicity: Cannot be determined (1). Shape: Not taller than wide (0). Margins: Smooth (0). Echogenic Foci: None (0). ACR TI-RADS total points: 2 ACR TI-RADS category: 2 NODES: No lymphadenopathy is seen in the tissue surrounding the thyroid gland. US/US thyroid IMPRESSION: ACR TI-RADS category: 2, 3, 4 and 5. ACR TI-RADS RECOMMENDATION REFERENCE: Ultrasound-guided fine-needle aspiration, followup ultrasound, no further follow up. * TR1 (0 point) and TR2 (2 points): No FNA or follow up. * TR3 (3 points): FNA if more than or equal to 2.5 cm in maximum dimension, followup ultrasound in 1, 3 and 5 years if 1.5 to 2.4 cm in maximum dimension. * TR4 (4-6 points): FNA if more than or equal to 1.5 cm in maximum dimension, followup ultrasound in 1, 2, 3 and 5 years if 1 to 1.4 cm in maximum dimension. * TR5 (more than or equal to 7 points): FNA if more than or equal to 1 cm in maximum dimension, followup ultrasound every year for 5 years if 0.5 to 0.9 cm in maximum dimension. * TR3, TR4 or TR5 nodules that are below the size threshold for followup receive no follow up. Electronically signed by: Froy Panda MD 04/19/2025 01:07 PM EDT
--- OUTSIDE RECORDS SUMMARY | 2025-04-19 13:08 | XMS_ITS | Patient Health Record ---
Author Organization [facility] Donya maday [place] Address [address] [facility] [place] [address] Care Team Providers Care Supervisor Type Photography Name Role Phone Miguel Orozco MD Primary Care Provider Rupert Lester Unavailable [phone] Allergies No Known Allergies Reason For Referral [...] Medicare National Govt Svcs Inc [address] [place] [address] [id number] Marcella Simmons Self - patient is the insured [facility] [address] [place] [address] [phone] [id number] 5 Marcella Simmons Self - patient is the insured Medical (General) History Medical History History ICD Code High blood pressure Surgical History Surgery Date(Month/Year) 11/01/1984 C- Section 04/28/1989
--- OUTSIDE RECORDS SUMMARY | 2025-04-19 13:08 | XMS_ITS | Patient Health Record ---
Author Organization [facility] Address [address] [place] [address] Care Team Providers Care Office Professional Name Role Phone Francisca Ya M.D. Primary Care Provider Rickie Pena Unavailable [phone] Reason For Referral No Information Medications Medication [...] Problem Status W/U Status Risk Notes Problem [id number] Encounter for screening for malignant neoplasm of colon (Z12.11) Active confirmed Problem [id number] Preprocedural examination (Z01.818) Active confirmed Plan Of Treatment Future Test Test Name Order Date COLONOSCOPY 02/02/2017 Next Appt Details Provider Name:Rickie Ashraf , 06/06/2025 01:20:00 PM, [address] [place] [address], [address], [place], [address], Insurance Providers Payer Name Payer Address Payer Phone Subscriber Number Group Number Insured Name Patient Relationship to Insured Coverage Start Date Coverage End Date MED[place]ARE OF [place] [address] [place] [address] [id number] JESSICA HADLEY Self - patient is the insured MED[employer] ATT[employer] CLAIMS [address] [place] [address] [phone] [id number] JESSICA HADLEY Self - patient is the insured Medical (General) History Medical History History ICD Code Denies [place],DM,CVA,Lung disease,renal dise ase Hypertension 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 screening colonoscopy at a [facility] in [place] Surgical History Surgery Date(Month/Year) section x 2 Uterine ablation
== END 2025-04-19 11:14 | disposition home or self-care (01) ==
LOC: HO.US 11:13
PROVIDERS: PCP Internal Medicine; Visit Provider Internal Medicine
DX: E04.9 Nontoxic goiter, unspecified (principal); R13.10 Dysphagia, unspecified; R09.A2 Foreign body sensation, throat
CPT/HCPCS: 76536

== ENCOUNTER → 2025-04-19 11:15 | Outpatient (BNV) | payer MEDICARE, SELFPAY | PROVIDERS: PCP Internal Medicine; Visit Provider Radiology Diagnostic Radiology | DX: R13.10 Dysphagia, unspecified (principal) | CPT/HCPCS: 76536 ==

== ENCOUNTER 2025-05-16 09:52 | Outpatient (REF) | payer MEDICARE, SELFPAY ==
--- NOTE | ~2025-05-16 | US_ITS ---
EXAMINATION: MM DIAGNOSTIC DIGITAL BREAST TOMOSYNTHESIS, RIGHT Right limited ultrasound. CLINICAL INFORMATION: Call back from screening for new focal asymmetry in the lower inner right breast. COMPARISON: Mammography: There is on PACS. TECHNIQUE: Digital breast tomosynthesis is performed in both the craniocaudal and mediolateral oblique views along with computer-aided detection (CAD). Synthesized 2D images are generated from the tomosynthesis. FINDINGS: There are scattered areas of fibroglandular density. Circumscribed oval mass in the lower inner right breast persists on additional imaging projections anterior depth. No suspicious calcifications or other abnormal findings. Targeted color Doppler ultrasound scanning in the lower inner right breast demonstrates a hypoechoic complicated cysts versus solid mass at 3:00 4 7 m from the nipple measuring 4 x 3 x 4 mm. This correlates with the mammographic circumscribed oval mass. US/US Breast RT Limited Mamm Only IMPRESSION: New circumscribed oval mass in the lower inner right breast anterior depth correlating with a solid mass versus complicated cyst on ultrasound. Recommend histology with ultrasound-guided core needle biopsy at this time. The findings and recommendations were discussed with the patient the procedure will be scheduled. ASSESSMENT: BI-RADS Category 4: Suspicious RECOMMENDATION: Biopsy recommended Results were provided to the patient at time of visit by the technologist. Electronically signed by: Ludivina Cho DO 05/16/2025 11:15 AM EDT
--- OUTSIDE RECORDS SUMMARY | 2025-05-16 11:52 | XMS_ITS | Patient Health Record ---
Author Organization [facility] Address [address] [place] [address] [place] [address] Care Team Providers Care Jewelry Jobber Name Role Phone Francisca Ya M.D. Primary Care Provider Rickie Pena Unavailable [phone] Reason For Referral No Information Medications Medication [...] Problem Status W/U Status Risk Notes Problem Screening for malignant neoplasm of colon (363306320) Encounter for screening for malignant neoplasm of colon (Z12.11) Active confirmed Problem Preprocedural examination ([id number]) Preprocedural examination (Z01.818) Active confirmed Plan Of Treatment Future Test Test Name Order Date COLONOSCOPY 02/02/2017 Next Appt Details Provider Name:Rickie Ashraf , 06/06/2025 01:20:00 PM, [address] [place] [address], [address], [place], [address], Insurance Providers Payer Name Payer Address Payer Phone Subscriber Number Group Number Insured Name Patient Relationship to Insured Coverage Start Date Coverage End Date MEDICARE OF [place] [address] [place] [id number] JESSICA HADLEY Self - patient is the insured MED[employer] ATT[employer] CLAIMS [address] [place] [address] [id number] 5 JESSICA HADLEY Self - patient is the insured Medical (General) History Medical History History ICD Code Denies [place],DM,CVA,Lung disease,renal dise ase Hypertension 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 screening colonoscopy at a [facility] in [place] Surgical History Surgery Date(Month/Year) section x 2 Uterine ablation
--- OUTSIDE RECORDS SUMMARY | 2025-05-16 11:52 | XMS_ITS | Patient Health Record ---
Author Organization [facility] Donya [place] Address [address] [facility] [place] [address] Care Team Providers Care Sales Mgr Name Role Phone Miguel Orozco MD Primary Care Provider Rupert Delgado Unavailable [phone] Allergies No Known Allergies Reason For Referral [...] Medicare National Govt Svcs Inc [address] [place] [place] [address] [phone] [id number] Marcella Simmons Self - patient is the insured [facility] [address] [place] [address] [phone] [id number] 5 aMrcella Simmons Self - patient is the insured Medical (General) History Medical History History ICD Code High blood pressure Surgical History Surgery Date(Month/Year) 11/01/1984 C- Section 04/28/1989
== END 2025-05-16 09:53 | disposition home or self-care (01) ==
LOC: HO.MAMMO 09:52
PROVIDERS: PCP Internal Medicine; Visit Provider Internal Medicine
DX: N63.14 Unspecified lump in the right breast, lower inner quadrant (principal)
CPT/HCPCS: 76642; 77061; 77065

== ENCOUNTER → 2025-05-16 10:00 | Outpatient (BNV) | payer MEDICARE, SELFPAY | PROVIDERS: PCP Internal Medicine; Visit Provider Internal Medicine | DX: N63.14 Unspecified lump in the right breast, lower inner quadrant (principal) | CPT/HCPCS: 76642; 77065; G0279 ==

== ENCOUNTER 2025-05-22 10:43 | Outpatient (AMB) | payer MEDICARE, SELFPAY ==
[2025-05-22 10:50] VITALS: BP 124/76; PULSE 92; BMI 27.1
--- NOTE | 2025-05-22 10:50 | A.OFFVIS_ITS ---
Vital Signs 3 05/22/25 10:50 Height 5 ft Weight 139 lb BMI 27.1 BP 124/76 Blood Pressure Location Lt brachial Position Sitting Pulse 92 Intake Visit Reasons: US biopsy right breast 3 O'clock density Intake Note: Pt states, They're telling me I need a biopsy on my right breast. found on mammo, not felt by pt Allergies No Known Allergies Allergy (Verified 05/22/25 10:52) Medication List - Last Reconciled 05/22/25 by Govind Pandey RN lisinopril 10 mg PO DAILY Zepbound (tirzepatide (weight loss)) 2.5 mg (0.5 mL) subcut QWEEK 4 weeks NS HPI Comments Details: 69-year-old female patient presenting for evaluation of a right breast mass noted on mammogram and ultrasound. Screening mammogram performed on 04/12/2025 revealed a normal left side however on the right side an oval mass in the lower inner breast, anterior depth was noted. No suspicious calcifications were identified. Additional imaging was recommended (BI-RADS 0). She returned on 05/16/2025 for a diagnostic right breast mammogram and ultrasound. This revealed a circumscribed oval mass in the lower inner quadrant right breast which persisted on additional images. Ultrasound revealed a 4 x 3 x 4 mm hypoechoic complicated cyst versus solid mass at the 03:00 location, 4 cm from the nipple. This was felt to be suspicious for malignancy in biopsy was recommended. The patient denies any breast pain, palpable lump, skin changes, nipple discharge, or enlarged lymph nodes. Her family history is negative for breast cancer. She denies any previous breast surgery. She is 3 para 2. Menarche was at 13. Her last menstrual period was at 50 years old. She is scheduled for an ultrasound-guided right breast needle core biopsy on 05/24/2025 at the [facility]. [facility] Surgical History History of colonoscopy (~05/17/17) Family History Mother No problems noted. Father No problems noted. Social History Housing: House Patient Tobacco Use Status: Former Tobacco user e-Cigarette/Vaping Use: Former Use service: No Current occupational status: employed and retired Cognitive needs: No Hearing needs: No Vision needs: Yes (rx glasses) Female Reproductive History Menstrual Age of Menarche: 13 Date of last menstrual period: 07/19/05 Age of menopause: 50 Total pregnancies: 3 Full term: 2 Review of Systems Const All systems reviewed & are unremarkable except as noted in HPI and below Physical Exam Vital Signs: Last Vital Signs Pulse 92 05/22/25 10:50 BP 124/76 05/22/25 10:50 BMI result Body Mass Index 27.1 Const General: cooperative and no acute distress Nutritional Appearance: well nourished Orientation/consciousness: patient oriented x3 Limitations: no limitations HEENT Head: Yes normocephalic and Yes atraumatic Ears: hearing grossly normal bilaterally Chest Other: Left breast: No skin change, no nipple retraction, no nipple discharge, no palpable mass, no enlarged lymph nodes. Right breast: No skin change, no nipple retraction, no nipple discharge, no enlarged lymph nodes. Small palpable nodule is noted in the 03:00 location approximately 4-5 cm from the nipple no more than 5 mm in diameter. No overlying skin changes are appreciated. Nodule is mobile within the breast tissue. Chest/axillae images: 2 1. Site of palpable nodule corresponding to the findings on mammogram. Resp Effort & Inspection: normal respiratory effort, no audible wheezes, no cough and no respiratory distress Cardio Jugular venous distension: no JVD GI Inspection: Yes normal to inspection Skin Other: Warm, dry, no rash Neuro General: patient oriented x3 Extrem General: Yes no clubbing, cyanosis or edema Assessment & Plan Assessment & Plan (1) Abnormal ultrasound of breast: Code(s): R92.8 - Other abnormal and inconclusive findings on diagnostic imaging of breast Category: Medical (2) Abnormal mammogram of right breast: Code(s): R92.8 - Other abnormal and inconclusive findings on diagnostic imaging of breast Category: Medical Plan 69-year-old female patient presenting with a recent screening mammogram with follow-up diagnostic imaging which revealed a density in the right breast 03:00 location either a complex cyst or solid mass (BI-RADS 4). Ultrasound-guided core biopsy was recommended and has been scheduled at the [facility] on 05/24/2025. On examination there is a corresponding palpable nodule in the 03:00 location. No other suspicious findings or enlarged lymph nodes are appreciated. The patient has no other risk factors for breast cancer. I recommended she return approximately 1 week following the biopsy to review the pathology results and discuss treatment options. She expressed understanding and agrees with the plan. Orders: Orders 2 US breast ndl core biopsy RT 05/24/25 R92.8 - Other abnormal and inconclusive findings on diagnostic imaging of breast Coding Level of Care Code New Pt Level 4 (40456) Diagnoses Abnormal ultrasound of breast R92.8 Abnormal mammogram of right breast R92.8
--- OUTSIDE RECORDS SUMMARY | 2025-05-22 12:46 | XMS_ITS | Patient Health Record ---
Author Organization [facility] Donya Saenzley Address [address] [facility] [facility] [place] [address] Care Team Providers Care Nursery Worker Name Role Phone Miguel Orozco MD Primary Care Provider Rupert Delgado Unavailable [phone] Allergies No Known Allergies Reason For Referral [...] Medicare National Govt [employer] [address] [place] [address] [phone] [id number] Marcella Simmons Self - patient is the insured [facility] [address] [place] [address] [phone] [id number] 5 Mareclla Simmons Self - patient is the insured Medical (General) History Medical History History ICD Code High blood pressure Surgical History Surgery Date(Month/Year) 11/01/1984 C- Section 04/28/1989
--- OUTSIDE RECORDS SUMMARY | 2025-05-22 12:46 | XMS_ITS | Patient Health Record ---
Author Organization [facility] Address [address] [place] [address] [place] [id number] Care Team Providers Care Distribution Collection Operator Name Role Phone Francisca Ya M.D. Primary Care Provider Rickie Pena Unavailable [phone] Reason For Referral No Information Medications Medication [...] Problem Screening for malignant neoplasm of colon (009389519) Encounter for screening for malignant neoplasm of colon (Z12.11) Active confirmed Problem Preprocedural examination (047054058001370) Preprocedural examination (Z01.818) Active confirmed Plan Of Treatment Future Test Test Name Order Date COLONOSCOPY 02/02/2017 Next Appt Details Provider Name:Rickie Ashraf , 06/06/2025 01:20:00 PM, [address] [place] [address], [address], [place], [address], Insurance Providers Payer Name Payer Address Payer Phone Subscriber Number Group Number Insured Name Patient Relationship to Insured Coverage Start Date Coverage End Date MEDICARE OF [place] [address] [place] [id number] [phone] [id number] JESSICA HADLEY Self - patient is the insured [employer] CLAIM[employer] [address] [place] [address] [id number] 5 JESSICA HADLEY Self - patient is the insured Medical (General) History Medical History History ICD Code Denies CO,DM,CVA,Lung disease,renal dise ase Hypertension 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 screening colonoscopy at a ge 51 in [place] Surgical History Surgery Date(Month/Year) section x 2 Uterine ablation
== END 2025-05-22 11:17 | disposition home or self-care (01) ==
LOC: HO.HGS 10:43
PROVIDERS: PCP Internal Medicine; Visit Provider Surgery
DX: R92.8 Other abnormal and inconclusive findings on diagnostic imaging of breast (principal)
CPT/HCPCS: 99204

== ENCOUNTER → 2025-05-22 10:43 | Outpatient (BNVA) | payer MEDICARE, SELFPAY | PROVIDERS: PCP Internal Medicine; Visit Provider Surgery | DX: Z71.2 Person consulting for explanation of examination or test findings (principal); N63.11 Unspecified lump in the right breast, upper outer quadrant; R92.8 Other abnormal and inconclusive findings on diagnostic imaging of breast | CPT/HCPCS: 99202 ==

== ENCOUNTER 2025-05-24 07:56 | Outpatient (REF) | payer MEDICARE, SELFPAY ==
--- NOTE | ~2025-05-24 | MM_ITS ---
PROCEDURE: ULTRASOUND-GUIDED RIGHT BREAST BIOPSY CLINICAL INFORMATION: Right breast solid mass versus complicated cyst which is new on mammography at 3:00 4 cm from the nipple here for ultrasound-guided core needle biopsy. COMPARISON: Priors on PACS. TECHNIQUE: The details of the procedure, as well as the risks, benefits, and alternatives to the procedure were explained to the patient in detail and all of her questions were answered, after which, written informed consent was obtained. PROCEDURE: Prior to the procedure, sonography revealed solid mass versus complicated cyst at the o'clock 4 cm from the nipple right breast. The procedure was explained to the patient, including discussion of the risks and benefits, and written informed consent was obtained. A preprocedural time out was performed to confirm the pateint identity with multiple identifiers as well as the side, site of the procedure to be performed. The lesion intended for biopsy was targeted and the skin of the right breast was then prepped and draped in the usual sterile fashion. Using sonographic guidance, sterile technique, and 1% lidocaine without epinephrine for local anesthesia, a total of 5 cores were obtained through the targeted area with a 14-gauge biopsy needle biopsy device. At the completion of tissue sampling, a single coil metallic clip was deposited at the biopsy site. An appropriate sample was obtained. The postprocedure 2-view direct digital mammogram reveals satisfactory positioning of the biopsy clip. The patient tolerated the procedure well and, after assuring adequate hemostasis, was discharged in good condition after reviewing postbiopsy breast care instructions. Final pathology results are pending. MM/MM diagnostic mammo unilat RT IMPRESSION: 1. Uncomplicated sonographically-guided core biopsy of the right breast. The 2-view direct digital postprocedure mammogram reveals satisfactory positioning of the biopsy clip. 2. Final pathology results are pending. A separate report with final recommendations will be issued once these results are made available. Electronically signed by: Ludivina Cho DO 05/24/2025 09:46 AM DANIELA
--- OUTSIDE RECORDS SUMMARY | 2025-05-24 08:01 | XMS_ITS | Patient Health Record ---
Author Organization [facility] Address [address] [place] [address] [phone] Care Team Providers Care Helpdesk Analyst Name Role Phone Francisca Ya M.D. Primary Care Provider Rickie Pena Unavailable [phone] Reason For Referral No Information Medications Medication [...] Problem Screening for malignant neoplasm of colon (294385867) Encounter for screening for malignant neoplasm of colon (Z12.11) Active confirmed Problem Preprocedural examination (513904082979861) Preprocedural examination (Z01.818) Active confirmed Plan Of Treatment Future Test Test Name Order Date COLONOSCOPY 02/02/2017 Next Appt Details Provider Name:Rickie Ashraf , 06/06/2025 01:20:00 PM, [address] [place] [address], [address], [place], [address], Insurance Providers Payer Name Payer Address Payer Phone Subscriber Number Group Number Insured Name Patient Relationship to Insured Coverage Start Date Coverage End Date [place] [address] [place] [id number] [phone] [id number] JESSICA HADLEY Self - patient is the insured [employer] CLAIM[employer] [address] [place] [address] [id number] 5 JESSICA HADLEY Self - patient is the insured Medical (General) History Medical History History ICD Code Denies [place],DM,CVA,Lung disease,renal dise ase Hypertension 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 screening colonoscopy at a ge 51 in [place] Surgical History Surgery Date(Month/Year) section x 2 Uterine ablation
--- OUTSIDE RECORDS SUMMARY | 2025-05-24 08:01 | XMS_ITS | Patient Health Record ---
Author Organization [facility] Donya Saenzley Address [address] [facility] [place] [address] Care Team Providers Care Crystal Finisher Name Role Phone Miguel Orozco MD Primary Care Provider Rupert Delgado Unavailable [phone] Allergies No Known Allergies Reason For Referral [...] Medicare National Govt Sv[employer] [address] [place] [address] [phone] [id number] Marcella Simmons Self - patient is the insured [facility] [address] [place] [address] [phone] [id number] Marcella Simmons Self - patient is the insured Medical (General) History Medical History History ICD Code High blood pressure Surgical History Surgery Date(Month/Year) 11/01/1984 C- Section 04/28/1989
[2025-05-24] MEDS: Lidocaine HCl 1 % 20 ML VIAL 9 ML SUBCUT (08:44)
== END 2025-05-24 07:57 | disposition home or self-care (01) ==
LOC: HO.MAMMO 07:56
PROVIDERS: PCP Internal Medicine; Visit Provider Surgery
DX: R92.8 Other abnormal and inconclusive findings on diagnostic imaging of breast (principal)
CPT/HCPCS: 19083; 77065; 88305; A4648; J2003

== ENCOUNTER → 2025-05-24 08:00 | Outpatient (BNV) | payer MEDICARE, SELFPAY | PROVIDERS: PCP Internal Medicine; Visit Provider Internal Medicine | DX: R92.8 Other abnormal and inconclusive findings on diagnostic imaging of breast (principal) | CPT/HCPCS: 19083; 77065 ==